=== PATIENT | male | born 1980 | race Caucasian/White ===

== ENCOUNTER → 2021-03-01 | Outpatient (CLI) | payer MEDICARE ==
--- NOTE | 2021-03-02 08:43 | XR ---
EXAMINATION TYPE: XR cervical spine comp DATE OF EXAM: 03/01/2021 COMPARISON: None HISTORY: Cervicalgia TECHNIQUE: 5V cervical spine FINDINGS: The odontoid appears unremarkable. The tip is not diagnostic due to overlying occiput. Prev ertebral space is normal. Disc heights are preserved. Vertebral body heights are preserved.. Foramina are patent. IMPRESSION: 1. Normal cervical spine
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
== END | disposition home or self-care (01) ==
LOC: RADXRYALE 15:47
PROVIDERS: ATTEND Physician Assistant Medical
DX: M54.2 Cervicalgia (principal); S43.031A Inferior subluxation of right humerus, initial encounter; V89.2XXA Person injured in unspecified motor-vehicle accident, traffic, initial encounter
CPT/HCPCS: 72050